=== PATIENT | male | born 1975 | race Caucasian/White ===

== ENCOUNTER 2022-05-05 17:54 | Inpatient (IN) | payer OTHER ==
[~2022-05-05] VITALS: Ht 170.2 cm; Wt 83.9 kg
[~2022-05-05 17:54] MED LIST: PIPERACILLIN SODIUM/TAZOBACTAM 3.375 G in IV DEXTROSE 5% 50 ML IV SCH
[2022-05-05] MEDS ORDERED: LIDOCAINE HCL 1% 20 ML VIAL ONE (18:12)
[2022-05-05] MEDS ORDERED: PIPERACILLIN/TAZOBACTAM/D5W 50 ML IV ONE (18:12)
[2022-05-05] MEDS ORDERED: IV NORMAL SALINE 1000 ML BAG IV ONE (18:15)
[2022-05-05] MEDS ORDERED: VANCOMYCIN IV 1,000 MG in IV DEXTROSE 5% 250 ML IV ONE (18:15)
[2022-05-05] MEDS ORDERED: MORPHINE SULFATE 2 MG/1 ML DISP.SYRIN IV ONE (18:15)
[2022-05-05] MEDS ORDERED: LIDOCAINE HCL 1% 20 ML VIAL IJ ONE (18:15)
[2022-05-05] MEDS ORDERED: ONDANSETRON 4 MG/2 ML VIAL IV ONE (18:15)
[2022-05-05] MEDS ORDERED: PIPERACILLIN SODIUM/TAZOBACTAM 3.375 G in IV DEXTROSE 5% 50 ML IV ONE (18:15)
[2022-05-05 18:38] LABS: HEMATOCRIT 46.4 % (36.7-47.1); MEAN CORPUSCULAR HEMOGLOBIN 29.4 uug (23.8-33.4); MEAN CORPUSCULAR VOLUME 90.6 fL (73.0-96.2); PLATELET COUNT (AUTO) 347 K/uL (152-348)
[2022-05-05] MEDS ORDERED: MORPHINE SULFATE 4 MG/1 ML DISP.SYRIN ONE (18:44)
--- NOTE | 2022-05-05 18:57 | NUR ---
PT IS IN ROOM #1B. DR HIDALGO EVALUATED THE PT.
[2022-05-05 19:04] LABS: CREATININE 0.9 mg/dL (0.6-1.3); POTASSIUM 3.7 mmol/L (3.5-5.1)
[2022-05-05 19:09] LABS: BILIRUBIN,DIRECT 0.1 mg/dL (0.0-0.2); BILIRUBIN,TOTAL 0.5 mg/dL (0.2-1.0); TOTAL PROTEIN, SERUM 8.9 g/dL (6.4-8.2)
--- NOTE | 2022-05-05 19:38 | NUR ---
Called third floor for [facility] bed. Waiting for call back on bed assignment.
[2022-05-05] MEDS ORDERED: VANCOMYCIN IV 200 ML ONE (19:41)
--- NOTE | 2022-05-05 20:34 | NUR ---
Patient has been admitted to third floor medsur room 319
[2022-05-05] MEDS ORDERED: MORPHINE SULFATE 2 MG/1 ML DISP.SYRIN ONE (21:09)
[2022-05-05] MEDS ORDERED: MORPHINE SULFATE 4 MG/1 ML DISP.SYRIN IV ONE (21:15)
--- NOTE | 2022-05-05 21:31 | NUR ---
Report given to Komal MARTÍNEZ.
[2022-05-05] MEDS ORDERED: HYDROCODONE/APAP 5-325MG TABLET PO PRN (22:15)
[2022-05-05] MEDS ORDERED: MAGNESIUM HYDROXIDE 30 ML LIQUID UDC PO PRN (22:15)
[2022-05-05] MEDS ORDERED: REMEDY ESSENTIAL ZINC PASTE 113 GM TP PRN (22:15)
[2022-05-05] MEDS ORDERED: ONDANSETRON 4 MG/2 ML VIAL IV PRN (22:15)
[2022-05-05] MEDS ORDERED: ACETAMINOPHEN 325 MG TABLET PO PRN (22:15)
--- NOTE | 2022-05-05 22:40 | NUR ---
Patient taken to third floor room 319 via gurney with personal belongings. Patient in stable condition, no signs of distress. Patient ambuted independently from gurney to hospital bed, tolerated well. Komal MARTÍNEZ aware of patients arrival
--- NOTE | 2022-05-05 22:50 | NUR ---
Received from ER via [facility], ambulate from [facility] to hospital bed. In no acute distress. Rt foot s/p I&D with intact and dry dressing. RAC IV access intact and patent. Routine admission care rendered. Oriented to room, BR, TV and call light. Care plan initiated. Needs assessed and attended to.
[2022-05-05 23:00] VITALS: BP 124/71
[2022-05-05] MEDS ORDERED: ACETAMINOPHEN/DIPHENHYDRAMINE TABLET PO PRN (23:30)
[2022-05-06] MEDS: TEMAZEPAM 7.5 MG CAPSULE PO PRN (01:54)
[2022-05-06] MEDS ORDERED: MORPHINE SULFATE 2 MG/1 ML DISP.SYRIN IV PRN (02:00)
[2022-05-06] MEDS ORDERED: VANCOMYCIN IV 200 ML ONE (03:08)
[2022-05-06] MEDS ORDERED: PIPERACILLIN/TAZOBACTAM/D5W 50 ML IV ONE (03:08)
[2022-05-06] MEDS ORDERED: PIPERACILLIN SODIUM/TAZOBACTAM 3.375 G in IV DEXTROSE 5% 50 ML IV SCH ×2 (03:15→06:00)
[2022-05-06] MEDS ORDERED: VANCOMYCIN IV 1,000 MG in IV DEXTROSE 5% 250 ML IV ONE (04:00)
[2022-05-06 05:30] VITALS: BP 131/79
[2022-05-06 06:18] LABS: HEMATOCRIT 39.4 % (36.7-47.1); MEAN CORPUSCULAR HEMOGLOBIN 29.6 uug (23.8-33.4); MEAN CORPUSCULAR VOLUME 89.7 fL (73.0-96.2); PLATELET COUNT (AUTO) 314 K/uL (152-348)
[2022-05-06] MEDS: MORPHINE SULFATE 4 MG/1 ML DISP.SYRIN IV PRN ×4 (06:45→22:43)
[2022-05-06 07:12] LABS: CREATININE 0.9 mg/dL (0.6-1.3); MAGNESIUM 2.1 mg/dL (1.8-2.4); PHOSPHOROUS 3.6 mg/dL (2.5-4.9); POTASSIUM 3.5 mmol/L (3.5-5.1)
[2022-05-06] MEDS: PIPERACILLIN SODIUM/TAZOBACTAM 3.375 G in IV DEXTROSE 5% 100 ML IV SCH ×2 (11:00→18:30)
[2022-05-06] MEDS ORDERED: HYDROCODONE/APAP 10-325 MG TABLET PO PRN (11:15)
[2022-05-06] MEDS: VANCOMYCIN IV 1,000 MG in IV DEXTROSE 5% 250 ML IV SCH ×2 (11:38→20:24)
[2022-05-06] MEDS: NICOTINE 14 MG/24HR PATCH TD SCH (11:43)
[2022-05-06 11:51] VITALS: BP 120/67
[2022-05-06] MEDS ORDERED: MORPHINE SULFATE 2 MG/1 ML DISP.SYRIN IV ONE (12:00)
--- NOTE | 2022-05-06 15:02 | NUR ---
Patient is alert, oriented x4, no sob, respirations are even nonlabored, skin warm and dry to touch, patient is asking for pain medication frequently, try to explain to patient that you have got morphine 6mg at 1143 and norco and half ago, patient requests to to call doctor and tell him to adjust his pain medications, even it was just adjusted in the morning and patient is fully aware about it that morphine was increased from 4mg to 6 mg every 4 hours as needed. Addendum: 05/06/22 at 1511 by ALESHA GOMEZ RN, RN reminded patient that his next morphine is due at 1543. patient verbalized understanding of it and willing to wait, nonpharmacological interventions provided.
[2022-05-06 15:57] VITALS: BP 124/58
[2022-05-06] MEDS ORDERED: METH500T4 PO (16:41)
[2022-05-06] MEDS ORDERED: MELA5TAB PO (16:43)
[2022-05-06] MEDS ORDERED: MAGN400T8 PO (16:43)
--- NOTE | 2022-05-06 18:57 | NUR ---
dressing changed to left foot, noted with moderate serosanguineous drainage, very tender to touch. continue to monitor
[2022-05-06] MEDS ORDERED: IV NORMAL SALINE 250 ML IV PRN (19:45)
[2022-05-06 20:00] VITALS: BP 121/80
[2022-05-06] MEDS ORDERED: BUPIVACAINE 0.25% 30 ML VIAL ONE (20:11)
[2022-05-06] MEDS ORDERED: LIDOCAINE 1%-EPI 1:100,000 20 ML VIAL ONE (20:11)
[2022-05-06] MEDS ORDERED: MUPIROCIN 2% OINT 22 GM TUBE ONE (21:40)
--- NOTE | 2022-05-06 22:00 | NUR ---
Patient had incision and drainage w/ debridement Rt. foot by Dr. Gayle, foreign body was removed, patient tolerated procedure.
[2022-05-07] MEDS: PIPERACILLIN SODIUM/TAZOBACTAM 3.375 G in IV DEXTROSE 5% 100 ML IV SCH ×3 (03:05→20:37)
[2022-05-07 03:14] LABS: HEMATOCRIT 40.3 % (36.7-47.1); MEAN CORPUSCULAR HEMOGLOBIN 30.4 uug (23.8-33.4); MEAN CORPUSCULAR VOLUME 88.5 fL (73.0-96.2); PLATELET COUNT (AUTO) 293 K/uL (152-348)
[2022-05-07] MEDS: MORPHINE SULFATE 4 MG/1 ML DISP.SYRIN IV PRN ×5 (03:16→22:15)
[2022-05-07 03:27] LABS: CREATININE 0.7 mg/dL (0.6-1.3); MAGNESIUM 1.9 mg/dL (1.8-2.4); PHOSPHOROUS 3.9 mg/dL (2.5-4.9); POTASSIUM 3.8 mmol/L (3.5-5.1)
[2022-05-07] MEDS: VANCOMYCIN IV 1,000 MG in IV DEXTROSE 5% 250 ML IV SCH ×3 (04:01→20:38)
--- NOTE | 2022-05-07 07:30 | NUR ---
NIGHT NURSE REPORT: 1) MENTAL STATE: Patient AOx4 2) BREATHING: No sign of SOB - on RA, no sign of distress or cyanosis. 3) PAIN: Complaining of pain - wound site and due Morphine. 4) COMFORT: Patient in pain, however, irritable, not in distress 5) SKIN: Skin intact, a few bruises from previous need picks trying to insert iv access. 6) EATING & DRINKING:Patient on regular diet, self feeding. 7) TOILETING: Patient able to mobilize to and from the bathroom. 8) HYGIENE: Patient able to self care with minimal assistance. 9) INFECTION: Iv access sites LFA #20G & RH #20G. Clean, dry, intact, and patent. 10) Will continue to assess and treat accordingly.
[2022-05-07] MEDS: NICOTINE 14 MG/24HR PATCH TD SCH (08:49)
[2022-05-07] MEDS: MUPIROCIN 2% OINT 22 GM TUBE TP SCH (09:00)
--- NOTE | 2022-05-07 10:15 | NUR ---
Checked on patient and no sign of distress, SOB or pain.
--- NOTE | 2022-05-07 14:00 | NUR ---
DRESSIN) Wound redressed as prescribed - wound clean and no discharge, odor observed . 2) Pain meds administered before dressing. 3) Awaiting special boot from [employer]
[2022-05-07 16:06] VITALS: BP 145/84
--- NOTE | 2022-05-07 17:00 | NUR ---
1) Shoe received was very large - [employer] office closed 2) Informed Director Home Health - will try and check if there is a medium size available, if not to try [employer] again tomorrow.
--- NOTE | 2022-05-07 18:15 | NUR ---
1) Patient comfortable and watching tv at the time of this report. 2) Patient had Morphine 6mg iv Q4hrly - with effect. 3) Next analgesia due after 21:00hrs and patient aware. 4) Will endorse care to night staff accordingly.
[2022-05-07 20:00] VITALS: BP 125/75
[2022-05-07] MEDS: TEMAZEPAM 7.5 MG CAPSULE PO PRN (20:38)
--- NOTE | 2022-05-07 22:00 | NUR ---
patient called c/o left hand ivf site redness d/c heplock secure with tape and placed no.20 h/l to the left hand attempted x1 .
--- NOTE | 2022-05-07 23:30 | NUR ---
changed soiled linens patient ambulated to the bathroom voided . provided blanket , call light placed with in reach .
[2022-05-08] MEDS: PIPERACILLIN SODIUM/TAZOBACTAM 3.375 G in IV DEXTROSE 5% 100 ML IV SCH ×3 (02:44→20:29)
--- NOTE | 2022-05-08 03:00 | NUR ---
due antibiotic given see emar.
[2022-05-08] MEDS: MORPHINE SULFATE 4 MG/1 ML DISP.SYRIN IV PRN ×5 (03:18→22:08)
[2022-05-08] MEDS: VANCOMYCIN IV 1,000 MG in IV DEXTROSE 5% 250 ML IV SCH ×3 (04:08→20:29)
--- NOTE | 2022-05-08 06:00 | NUR ---
RESITED H/L ON THE RIGHT HAND PLACED NO.20
[2022-05-08 07:26] LABS: CREATININE 0.8 mg/dL (0.6-1.3); HEMATOCRIT 42.3 % (36.7-47.1); MAGNESIUM 2.3 mg/dL (1.8-2.4); MEAN CORPUSCULAR HEMOGLOBIN 29.9 uug (23.8-33.4); MEAN CORPUSCULAR VOLUME 88.8 fL (73.0-96.2); PHOSPHOROUS 4.8 mg/dL (2.5-4.9); PLATELET COUNT (AUTO) 333 K/uL (152-348); POTASSIUM 3.6 mmol/L (3.5-5.1)
[2022-05-08 08:00] VITALS: BP 120/68
--- NOTE | 2022-05-08 08:21 | NUR ---
Morning medication given to patient. She took medication whole. Patient was helped to the bathroom with 2 person assist. Lisinopril and Amlodipine held for 0900 administration due to normal Bp and low HR. Sn will recheck at 1000.
[2022-05-08] MEDS: MUPIROCIN 2% OINT 22 GM TUBE TP SCH (09:05)
[2022-05-08] MEDS: NICOTINE 14 MG/24HR PATCH TD SCH (09:05)
--- NOTE | 2022-05-08 09:08 | NUR ---
Correction on previous note, it was meant for another patient. Patient is found awake in bed. He is alert and oriented x4. Breathing normal on room air. Patient did asked when was his next dose due for pain. Morphine administered by charge nurse at 0900. Nicotine patch provided. Patient is calm and relaxed. Respirations even, unlabored. Sn, will continue to monitor.
--- NOTE | 2022-05-08 10:56 | NUR ---
Dressing change done on right foot. Cleaned wound with NS pat dry applied Mupiocin, xeroform, 4x4, ABD Pad and Kerlex. Patient is comfortable currently. Will continue to monitor.
[2022-05-08] MEDS ORDERED: diphenhydrAMINE 25 MG CAP PO PRN ×2 (11:00)
[2022-05-08] MEDS ORDERED: ACETAMINOPHEN ES 500 MG TABLET PO PRN ×2 (11:00→21:00)
[2022-05-08 11:17] VITALS: BP 112/63
[2022-05-08 15:22] VITALS: BP 120/71
[2022-05-09] MEDS: PIPERACILLIN SODIUM/TAZOBACTAM 3.375 G in IV DEXTROSE 5% 100 ML IV SCH ×2 (02:52→10:37)
[2022-05-09] MEDS: VANCOMYCIN IV 1,000 MG in IV DEXTROSE 5% 250 ML IV SCH ×2 (03:43→12:00)
[2022-05-09 04:00] VITALS: BP 118/72
[2022-05-09 05:58] LABS: HEMATOCRIT 38.9 % (36.7-47.1); MEAN CORPUSCULAR HEMOGLOBIN 29.3 uug (23.8-33.4); MEAN CORPUSCULAR VOLUME 89.2 fL (73.0-96.2); PLATELET COUNT (AUTO) 275 K/uL (152-348)
[2022-05-09 06:06] LABS: CREATININE 0.8 mg/dL (0.6-1.3); MAGNESIUM 2.3 mg/dL (1.8-2.4); PHOSPHOROUS 4.3 mg/dL (2.5-4.9); POTASSIUM 3.7 mmol/L (3.5-5.1)
--- NOTE | 2022-05-09 06:24 | NUR ---
PATIENT IN BED, RESTED WELL. AOX4. NO SOB OR RESP DISTRESS NOTED. SKIN IS WARM TO TOUCH AND DRY. AFEBRILE. PATIENT REQUESTED FO MORPHINE 6MG. MORPHINE GIVEN BY RN FOR PAIN 09/30 ON RIGHT FOOT. REASSESSED PATIENT AND PAIN MEDICATION NOTED EFFECTIVE. ALL DUE MEDS GIVEN ORDERED AND TOLERATED WELL.IV ATB ADMINISTERED VIA IV ON RIGHT FOREARM #20G AND NO ADVERSE EFFECTS NOTED. CALL LIGHT IN REACH. ALL NEEDS AND ATTENDED. KEPT CLEAN DRY AND COMFORTABLE. WILL ENDORSE TO DAY SHIFT.
[2022-05-09] MEDS: NICOTINE 14 MG/24HR PATCH TD SCH (08:57)
[2022-05-09] MEDS: MORPHINE SULFATE 4 MG/1 ML DISP.SYRIN IV PRN (09:04)
--- NOTE | 2022-05-09 09:33 | NUR ---
PATIENT SEEN BY PHYSICAL THERAPY FOR AMBULATION GAITED WITH CRUTCHES WITH [facility] [employer] D/D PLANNING
[2022-05-09] MEDS: MUPIROCIN 2% OINT 22 GM TUBE TP SCH (10:25)
[2022-05-09] MEDS ORDERED: PIPERACILLIN SODIUM/TAZOBACTAM 3.375 G in IV DEXTROSE 5% 50 ML IV SCH (11:00)
--- NOTE | 2022-05-09 12:03 | NUR ---
PATIENT SEEN BY LOUIS MAYNARD WHO REVIEWED PATIENTS WOUND WITH ORDER TO DISCHARGE HIM HOME TODAY.
[2022-05-09] MEDS ORDERED: HYDR-3976 PO (12:07)
[2022-05-09] MEDS ORDERED: SULF1TAB48 PO (12:07)
[2022-05-09] MEDS ORDERED: CEPH500C2 PO (12:07)
[2022-05-09] MEDS ORDERED: IBUP-1957 PO (12:07)
[2022-05-09] MEDS ORDERED: MUPI22OI2 TP (12:07)
[2022-05-09 12:50] VITALS: BP 121/73
--- NOTE | 2022-05-09 13:20 | NUR ---
PATIENT AWARE OF DISCHARGE AND STATED THAT HE WILL GO HOME BY UBER.
--- NOTE | 2022-05-09 13:45 | NUR ---
PATIENT DISCHARGED HOME WITH DISCHARGE INSTRUCTIONS AND DISCHARGE MEDICATIONS SENT ELECTRONICALLY BY THE PROVIDER PATIENT EDUCATED ON DRESSING /WOUND CARE AND INSTRUCTED TO FOLLOW UP WITH [facility] AND TO RETURN TO ED IF NECESSARY PER [employer] WILL ARRANGE WITH THE PATIENTS INSURANCE TOMORROW RE HOME HEALTH THEY ARE CLOSED TODAY AND PATIENT EXPRESSED UNDERSTANDING.PATIENT ESCORTED DOWN TO THE LOBBY BY W/CHAIR WHERE HE CAUGHT AN UBER RIDE HOME WITH ALL HIS PERSONAL BELONGINGS.
== END 2022-05-09 13:45 | disposition home health service (06) | DRG 580 ==
LOC: ER 17:54 → MEDSURG3 22:20
PROVIDERS: ADMIT Nurse Practitioner Acute Care; ATTEND Nurse Practitioner Acute Care
PROC: 0H9MXZZ Drainage of Right Foot Skin, External Approach (ICD-10-PCS; principal; 2022-05-05)
PROC: 0KBV0ZZ Excision of Right Foot Muscle, Open Approach (ICD-10-PCS; 2022-05-06)
DX: L03.115 Cellulitis of right lower limb (principal); L02.611 Cutaneous abscess of right foot; S91.331A Puncture wound without foreign body, right foot, initial encounter; W22.8XXA Striking against or struck by other objects, initial encounter; Y92.89 Other specified places as the place of occurrence of the external cause; Z20.822 Contact with and (suspected) exposure to COVID-19
CPT/HCPCS: 36415; 71045; 73630; 83605; 83735; 84100; 85025; 85651; 85730; 86140; 87040; 93005; A4663; A6209; G0378; J2270; J2405; J2543; J3370; J3490; J7040; J7050

== ENCOUNTER 2022-12-08 11:40 | Emergency (ER) | payer MEDICAID, OTHER ==
[~2022-12-08] VITALS: Ht 170.2 cm; Wt 83.9 kg
[~2022-12-08 11:40] MED LIST changes: +CEPH500C2 PO; +HYDR-3976 PO; +IBUP-1957 PO; +MAGN400T8 PO; +MELA5TAB PO; +METH500T4 PO; +MUPI22OI2 TP; -PIPERACILLIN SODIUM/TAZOBACTAM 3.375 G in IV DEXTROSE 5% 50 ML IV SCH; +SULF1TAB48 PO
[2022-12-08 12:36] LABS: BASOPHILS # (AUTO) 0.1 K/UL (0.0-0.2); BASOPHILS % (AUTO) 0.7 % (0.0-2.0); EOSINOPHILS # (AUTO) 0.1 K/uL (0.0-0.7); EOSINOPHILS % (AUTO) 0.7 % (0.0-7.0); HEMATOCRIT 42.1 % (36.7-47.1); HEMOGLOBIN 13.8 g/dL (12.5-16.3); LYMPHOCYTES # (AUTO) 1.4 K/uL (0.8-4.8); LYMPHOCYTES % (AUTO) 15.4 % (20.5-51.5); MEAN CORPUSCULAR HEMOGLOBIN 29.7 uug (23.8-33.4); MEAN CORPUSCULAR HGB CONC 33 g/dL (32.5-36.3); MEAN CORPUSCULAR VOLUME 90.2 fL (73.0-96.2); MONOCYTES # (AUTO) 0.6 K/uL (0.1-1.30); MONOCYTES % (AUTO) 7.3 % (0.0-11.0); NEUTROPHILS # (AUTO) 6.7 K/uL (1.8-8.9); NEUTROPHILS % (AUTO) 75.9 % (38.5-71.5); PLATELET COUNT (AUTO) 208 K/uL (152-348); RED BLOOD CELL COUNT(AUTO) 4.67 MIL/uL (4.06-5.63); RED CELL DISTRIBUTION WIDTH 12.9 % (12.1-16.2); WHITE BLOOD COUNT (AUTO) 8.8 K/uL (3.6-10.2)
[2022-12-08 12:39] LABS: *BILIRUBIN,URIN NEGATIVE (NEGATIVE); *BLOOD, URINE NEGATIVE (NEGATIVE); *CLARITY,URINE CLEAR (CLEAR); *COLOR,URINE YELLOW (YELLOW); *KETONES,URINE NEGATIVE (NEGATIVE); *PROTEIN,URINE NEGATIVE (NEGATIVE); *UROBILINOGEN,URINE 0.2 E.U./dl (NORMAL); LEUKOCYTE ESTERASE ,URINE NEGATIVE (NEGATIVE); NITRITE, URINE NEGATIVE (NEGATIVE); UGLUCOSE NEGATIVE (NEGATIVE)
[2022-12-08 12:53] LABS: DIFFERENTIAL COMMENT 1
[2022-12-08 12:57] LABS: CALCIUM 9.2 mg/dL (8.5-10.1); CREATININE 0.7 mg/dL (0.6-1.3); POTASSIUM 4.3 mmol/L (3.5-5.1)
[2022-12-08 13:02] LABS: ALBUMIN 3.6 g/dL (3.4-5.0); BILIRUBIN,TOTAL 0.7 mg/dL (0.2-1.0); TOTAL PROTEIN, SERUM 7.7 g/dL (6.4-8.2)
[2022-12-08] MEDS ORDERED: CEFTRIAXONE 500 MG VIAL IM ONE (13:45)
[2022-12-08] MEDS ORDERED: CEFTRIAXONE 500 MG VIAL ONE (13:51)
[2022-12-08] MEDS ORDERED: LIDOCAINE HCL 1% 20 ML VIAL ONE (13:52)
[2022-12-08] MEDS ORDERED: LEVO500T90 PO (13:54)
[2022-12-08 14:14] VITALS: BP 136/77; TEMP 98.2; O2SAT 98
== END 2022-12-08 14:15 | disposition home or self-care (01) ==
LOC: ER 11:40
DX: N45.1 Epididymitis (principal); Z79.899 Other long term (current) drug therapy; Z79.1 Long term (current) use of non-steroidal anti-inflammatories (NSAID)
CPT/HCPCS: 99285; 76770; 80053; 81003; 85025; 36415; 76870; 96372; J0696; J3490; A4606; A4663

== ENCOUNTER 2024-10-11 21:52 | Emergency (ER) | payer MEDICAID ==
[~2024-10-11] VITALS: Ht 172.7 cm; Wt 88.5 kg
[~2024-10-11 21:52] MED LIST changes: +LEVO500T90 PO
[2024-10-11 21:55] VITALS: BP 137/92
[2024-10-11] MEDS ORDERED: SULFAMETH/TRIMETH 800/160 MG TABLET ONE (22:16)
[2024-10-11] MEDS: SULFAMETH/TRIMETH 800/160 MG TABLET PO ONE (22:18)
[2024-10-11] MEDS ORDERED: SULF1TAB48 PO (22:19)
[2024-10-11 22:34] VITALS: BP 136/88; TEMP 98.2; O2SAT 97
== END 2024-10-11 22:34 | disposition home or self-care (01) ==
LOC: ER 21:59
DX: L02.11 Cutaneous abscess of neck (principal); F17.210 Nicotine dependence, cigarettes, uncomplicated
CPT/HCPCS: A4606; A4663